=== PATIENT | female | born 1950 | race Caucasian/White ===

== ENCOUNTER → 2017-04-20 | Outpatient (CLI) | payer BC ==
[2017-04-20 13:18] LABS: BASO % 0.2 %; BASO ABS # 0.02 K/uL (0-0.2); COMPLETE YES; EOS % 2.7 %; HEMATOCRIT 38.8 % (37-47); IG% 0.2 %; LYMPH % 25.3 %; LYMPH ABS # 2.26 K/uL (1.2-3.4); MEAN CELL VOLUME 85.5 fL (80-100); MEAN CORPUSCULAR HGB CONC 32.7 g/dl (32-36); MEAN PLATELET VOLUME 9.2 fL (7.4-10.4); MONO % 6.9 %; NEUT % 64.7 %; PLATELET COUNT 219 K/uL (130-400); RED BLOOD COUNT 4.54 M/uL (4.2-5.4); WHITE BLOOD COUNT 8.93 K/uL (4.8-10.8)
[2017-04-20 13:57] LABS: ALT/SGPT 44 U/L (12-78); AST/SGOT 40 U/L (15-37); BLOOD UREA NITROGEN 20 mg/dl (7-18); BUN/CREATININE RATIO 28.5 (10-20); CALCIUM 8.6 mg/dl (8.5-10.1); CARBON DIOXIDE 27 mmol/L (21-32); CHLORIDE 103 mmol/L (98-107); CREATININE 0.71 mg/dl (0.60-1.20); GLUCOSE 158 mg/dl (70-99); POTASSIUM 3.7 mmol/L (3.5-5.1); SODIUM 140 mmol/L (136-145)
[2017-04-20 14:07] LABS: ALKALINE PHOSPHATASE 32 U/L (45-117); CHOLESTEROL 114 mg/dl (0-200); HDL CHOLESTEROL 38 mg/dl; LDL CHOLESTEROL CALCULATED 31 mg/dl; TRIGLYCERIDES 226 mg/dl (0-150); VERY LOW DENSITY LIPOPROT CALC 45 mg/dl
[2017-04-20 14:16] LABS: RATIO 5.3 mcg/mg (0-30.0)
== END | disposition home or self-care (01) ==
LOC: C.LABMFLN 08:07
PROVIDERS: ATTEND Physician Assistant
DX: E11.9 Type 2 diabetes mellitus without complications (principal); I10 Essential (primary) hypertension; E78.5 Hyperlipidemia, unspecified

== ENCOUNTER → 2017-05-27 | Outpatient (CLI) | payer BC ==
--- NOTE | 2017-06-03 15:19 | MAMMOGRAPHY REPORT ---
BILATERAL DIGITAL SCREENING MAMMOGRAM TOMOSYNTHESIS WITH CAD: 05/27/2017 CLINICAL HISTORY: Routine screening. Patient has no complaints. TECHNIQUE: Breast tomosynthesis in addition to standard 2D mammography was performed. Current study was also evaluated with a Computer Aided Detection (CAD) system. COMPARISON: [facility] 01[facility]16/2012, 01/01/2016. BREAST COMPOSITION: The tissue of both breasts is almost entirely fatty. FINDINGS: There are groupings of microcalcifications in the central and upper outer middle one third of the left breast, that were not present on prior mammograms. Additional spot magnification views are recommended. There is a 5 mm lobulated mass in the upper outer middle one third of the left [address], warranting additional targeted ultrasound and possible additional mammographic views. There is stable nodular asymmetry in the central right breast. No other suspicious mass, architectura l distortion or cluster of microcalcifications is seen. IMPRESSION: ACR BI-RADS CATEGORY 0: INCOMPLETE EVALUATION: NEED ADDITIONAL IMAGING EVALUATION The groupings of microcalcifications in the central left breast and left upper outer quadrant as well as 5 mm lobulated mass in the left breast need additional imaging evaluation. The patient will be called to schedule an appointment. Approximately 10% of breast cancers are not detected with mammography. A negative mammographic report should not delay biopsy if a clinically suggestive mass is present. Audrey Gupta M.D. ay/:06/03/2017 14:18:41 Cathead Operator: Ghislaine HAWKINS)(Heri), [facility] letter sent: Addl Imaging 0 BI-RADS Code: ACR BI-RADS Category 0: Incomplete Evaluation: Need Additional Imaging Evaluation
== END | disposition home or self-care (01) ==
LOC: C.MAMM 13:05
PROVIDERS: ATTEND Physician Assistant
DX: Z12.31 Encounter for screening mammogram for malignant neoplasm of breast (principal); R92.0 Mammographic microcalcification found on diagnostic imaging of breast

== ENCOUNTER → 2017-06-09 | Outpatient (CLI) | payer BC ==
--- NOTE | 2017-06-09 14:32 | MAMMOGRAPHY REPORT ---
UNILATERAL LEFT DIGITAL DIAGNOSTIC MAMMOGRAM AND TARGETED LEFT ULTRASOUND: 06/09/2017 CLINICAL HISTORY: Callback from screening mammogram for left breast calcifications and left breast ma ss. TECHNIQUE: Spot magnification left CC and ML views were obtained. COMPARISON: Comparison is made to exam dated: 05/27/2017 mammogram - [facility]. Also prior outside mammograms dated 01/01/2016, 01/16/2012. BREAST COMPOSITION: The tissue of the left breast is almost entirely fatty. FINDINGS: Spot magnification views of the left breast demonstrate a small loose grouping of calcific ations within the left upper outer quadrant, which are predominantly amorphous in morphology. There are similar-appearing loosely grouped calcifications within the left superior breast at approximately 12:00. The calcifications appear more coarsened compared to the 2016 exam and are therefore probabl y benign and may represent fibroadenomatoid changes. The calcifications are not clearly present on t 2011 exam. A lobulated circumscribed 5 mm mass is seen within the left upper outer quadrant middle depth, for which ultrasound was performed. Targeted ultrasound was performed of the left upper outer quadrant in the region of the mammographic mass. In the left breast at 1:00 periareolar region, there is a lobulated anechoic mass with a few t hin internal septations, measuring 4 x 3 mm. This likely corresponds with the mammographic mass and is probably benign and likely represents a micro-cyst cluster. No suspicious solid masses were evide nt. IMPRESSION: ACR-BI-RADS CATEGORY 3: PROBABLY BENIGN, TARGETED ULTRASOUND ACR-BI-RADS CATEGORY 3: PRO BABLY BENIGN 1. Two loose groupings of similar-appearing calcifications within the left upper outer quadrant and l eft 12:00 breast. The calcifications appear more coarsened compared to the 2016 exam and are probabl y benign and likely represent fibroadenomatoid changes. Recommend follow-up diagnostic mammograms of the left breast in 6 months to confirm stability on spot magnification views. 2. Small 4 mm mass in the left 1:00 periareolar breast on ultrasound, which corresponds with the jayson mographic mass. The mass is probably benign and likely represents a microcystic cluster. Recommend follow-up diagnostic tomosynthesis mammograms and possible ultrasound of the left breast in 6 months to reevaluate. The patient has been verbally notified of the results. Approximately 10% of breast cancers are not detected with mammography. A negative mammographic report should not delay biopsy if a clinically suggestive mass is present. Sandra Clark M.D. ah/:06/09/2017 11:49:57 On Call: Madelin COURTNEY(Amanda)(M), [facility] letter sent: Follow Up Recommended 3 BI-RADS Code: ACR-BI-RADS Category 3: Probably Benign Ultrasound BI-RADS: ACR-BI-RADS Category 3: Pr obably Benign
== END | disposition home or self-care (01) ==
LOC: C.MAMM 10:25
PROVIDERS: ATTEND Physician Assistant
DX: R92.1 Mammographic calcification found on diagnostic imaging of breast (principal)

== ENCOUNTER → 2017-06-15 | Outpatient (CLI) | payer BC ==
--- NOTE | 2017-06-15 07:58 | DIAGNOSTIC IMAGING REPORT ---
ABDOMEN LIMITED (US) HISTORY: 67 years-old Female R10.12 Left upper quadrant abdominal pain of unknown etiology acute left upper quadrant abdominal pain COMPARISON: None available TECHNIQUE: Multiple real-time sonographic images of the abdominal left upper quadrant were obtained assessing grayscale appearance and color flow FINDINGS: The left kidney measures 10.4 x 5.7 x 5.8 cm and is unremarkable without hydronephrosis or renal calculi. Cortical medullary differentiation is preserved. The spleen is unremarkable measuring 11.3 cm in length. No focal abnormality identified within the left upper quadrant. No fluid collections or mass identified. IMPRESSION: Unremarkable sonographic appearance of the left upper abdomen. The above report was generated using voice recognition software. It may contain grammatical, syntax or spelling errors. Electronically signed by: Dawit Mcmillan M.D. 06/15/2017 7:57 AM Dictated Date/Time: 06/15/2017 7:56 AM
== END | disposition home or self-care (01) ==
LOC: C.ULTR 07:25
PROVIDERS: ATTEND Physician Assistant
DX: R10.12 Left upper quadrant pain (principal)

== ENCOUNTER → 2017-06-19 | Outpatient (CLI) | payer BC ==
[~2017-06-19] MED LIST: OPTIRAY 320 IV PRN
--- NOTE | 2017-06-19 13:30 | DIAGNOSTIC IMAGING REPORT ---
ABDOMEN AND PELVIS CT WITH IV AND ORAL CONTRAST CT DOSE: 1046.34 mGycm HISTORY: Acute elevated lipase with left upper quadrant abdominal pain DIABETES,ELEV ABD PAIN TECHNIQUE: Multiaxial CT images of the abdomen and pelvis were performed following the use of intravenous and oral contrast. A dose lowering technique was utilized adhering to the principles of ALARA. COMPARISON STUDY: Ultrasound of the abdomen 06/15/2017. FINDINGS: Lung bases are generally clear with only mild subsegmental bibasilar atelectasis. No pneumatosis or pneumoperitoneum identified. Coronary arterial calcifications are noted. There are calcifications of the mitral annulus as well. The liver, spleen, pancreas and adrenal glands are within normal limits. The gallbladder appears surgically absent. No intrahepatic biliary ductal dilation. No peripancreatic inflammatory changes or peripancreatic edema to suggest acute pancreatitis. 5 mm low attenuating lesion of the superior pole left kidney is too small to characterize however suggests renal cyst. 2 mm nonobstructing calculus of the interpolar left kidney. There are suggested renal sinus cysts bilaterally. Exophytic low attenuating 1.2 seminal lesion of the interpolar right kidney suggests cyst. No ureteral calculi or hydronephrosis identified. Urinary bladder is collapsed. Nodularity of the fundal uterus is noted with a focal fibroid measuring up to 2.4 x 1.8 cm which appears to be subserosal. No adnexal mass lesions. Mild atherosclerosis of the aorta. No bulky adenopathy. There is no bowel obstruction or focal bowel wall thickening. Extensive colonic diverticulosis involves the sigmoid colon without evidence of acute diverticulitis. The appendix is surgically absent. Small fat filled periumbilical hernia is noted, diastases 1.9 cm. Patient obesity noted. There is diastases recti. The bones appear intact. Multilevel discogenic degenerative changes and facet arthropathy noted. IMPRESSION: 1. No acute intra-abdominal or intrapelvic abnormality identified, specifically the pancreas appears to be within normal limits without evidence of acute pancreatitis. 2. Nonobstructing 2 mm calculus of the interpolar left kidney. 3. Colonic diverticulosis without diverticulitis. 4. Fibroid uterus. 5. Small fat filled periumbilical hernia. Electronically signed by: Dawit Mcmillan M.D. 06/19/2017 1:28 PM Dictated Date/Time: 06/19/2017 1:21 PM
== END | disposition home or self-care (01) ==
LOC: C.CTS 12:58
PROVIDERS: ATTEND Physician Assistant
DX: E11.9 Type 2 diabetes mellitus without complications (principal); R10.12 Left upper quadrant pain; R74.8 Abnormal levels of other serum enzymes

== ENCOUNTER → 2017-06-24 | Outpatient (CLI) | payer BC ==
--- NOTE | 2017-06-24 08:31 | DIAGNOSTIC IMAGING REPORT ---
DOUBLE CONTRAST UPPER GI SERIES CLINICAL HISTORY: Left upper quadrant abdominal pain. COMPARISON STUDY: CT of the abdomen and pelvis June 19, 2017. FLUOROSCOPY TIME: 2 minutes. FINDINGS: 23 fluoroscopic images were obtained. Esophageal motility was normal. No esophageal mass or stricture was noted. Moderate gastroesophageal reflux was elicited. No hiatal hernia was identified. Gastric fold pattern was normal. The duodenal fold pattern was normal. Caliber of the opacified jejunum was normal. Note was made of scattered colonic diverticula which contain contrast from prior CT. IMPRESSION: Moderate gastroesophageal reflux. Otherwise, unremarkable double contrast upper GI series. Electronically signed by: Tony Dao M.D. 06/24/2017 8:29 AM Dictated Date/Time: 06/24/2017 8:27 AM
== END | disposition home or self-care (01) ==
LOC: C.RAD 07:48
PROVIDERS: ATTEND Physician Assistant
DX: K21.9 Gastro-esophageal reflux disease without esophagitis (principal); R74.8 Abnormal levels of other serum enzymes

== ENCOUNTER → 2017-06-26 | Outpatient (CLI) | payer BC ==
[2017-06-26 13:06] LABS: BLOOD UREA NITROGEN 18 mg/dl (7-18); BUN/CREATININE RATIO 23.6 (10-20); CALCIUM 8.8 mg/dl (8.5-10.1); CARBON DIOXIDE 30 mmol/L (21-32); CHLORIDE 103 mmol/L (98-107); CREATININE 0.78 mg/dl (0.60-1.20); GLUCOSE 199 mg/dl (70-99); POTASSIUM 3.7 mmol/L (3.5-5.1); SODIUM 138 mmol/L (136-145)
== END | disposition home or self-care (01) ==
LOC: C.LABMFLN 08:56
PROVIDERS: ATTEND Physician Assistant
DX: R74.8 Abnormal levels of other serum enzymes (principal); E87.6 Hypokalemia

== ENCOUNTER → 2017-07-09 | Outpatient (CLI) | payer BC ==
[2017-07-09 13:48] LABS: BLOOD UREA NITROGEN 21 mg/dl (7-18); BUN/CREATININE RATIO 27.8 (10-20); CALCIUM 8.9 mg/dl (8.5-10.1); CARBON DIOXIDE 31 mmol/L (21-32); CHLORIDE 98 mmol/L (98-107); CREATININE 0.74 mg/dl (0.60-1.20); GLUCOSE 161 mg/dl (70-99); POTASSIUM 3.3 mmol/L (3.5-5.1); SODIUM 136 mmol/L (136-145)
== END | disposition home or self-care (01) ==
LOC: C.LABMFLN 08:51
PROVIDERS: ATTEND Physician Assistant
DX: R74.8 Abnormal levels of other serum enzymes (principal); E87.6 Hypokalemia

== ENCOUNTER → 2017-10-01 | Outpatient (CLI) | payer OTHER ==
[2017-10-01 13:10] LABS: HEMOGLOBIN A1C 6.9 % (4.5-5.6)
[2017-10-01 13:14] LABS: ALBUMIN 3.6 gm/dl (3.4-5.0); ALT/SGPT 34 U/L (12-78); AST/SGOT 29 U/L (15-37); BLOOD UREA NITROGEN 20 mg/dl (7-18); CALCIUM 8.6 mg/dl (8.5-10.1); CARBON DIOXIDE 27 mmol/L (21-32); CREATININE 0.77 mg/dl (0.60-1.20); GLUCOSE 155 mg/dl (70-99); POTASSIUM 3.6 mmol/L (3.5-5.1); SODIUM 138 mmol/L (136-145)
[2017-10-01 13:17] LABS: ALKALINE PHOSPHATASE 33 U/L (45-117); CHOLESTEROL 93 mg/dl (0-200); LDL CHOLESTEROL CALCULATED 16 mg/dl; TOTAL PROTEIN 6.9 gm/dl (6.4-8.2)
== END | disposition home or self-care (01) ==
LOC: C.LABMFLN 09:17
PROVIDERS: ATTEND Physician Assistant
DX: E11.9 Type 2 diabetes mellitus without complications (principal); I10 Essential (primary) hypertension; E78.5 Hyperlipidemia, unspecified; E53.8 Deficiency of other specified B group vitamins